=== PATIENT | female | born 1975 | race Asian ===

== ENCOUNTER 2021-09-05 08:50 | Outpatient (CLI) | payer BC, SELFPAY ==
[2021-09-05 14:12] LABS: Chloride* 105 mmol/L (96-114); Potassium* 4.5 mmol/L (3.6-5.1); Sodium* 139 mmol/L (135-149)
[2021-09-05 14:15] LABS: Blood Urea Nitrogen* 15 mg/dL (5-24); Carbon Dioxide* 27 mmol/L (20-32); Cholesterol* 232 mg/dL (90-199); Creatinine* 0.7 mg/dL (0.5-1.5); Estimated Glomerular Filt Rate 107 ml/min; Glucose* 85 mg/dL (60-115)
[2021-09-05 14:16] LABS: Calcium* 9.7 mg/dL (8.4-10.6); HDL Cholesterol* 58 mg/dL (>=50); LDL Cholesterol Calculated 136 mg/dL (<100); Triglycerides* 189 mg/dL (40-149)
[2021-09-05 14:45] LABS: TSH With Reflex to FT4* 0.735 uIU/mL (0.270-4.200)
== END 2021-09-05 08:51 | disposition home or self-care (01) ==
LOC: LKVREF 08:50
PROVIDERS: PCP Physician Assistant Medical; Visit Provider Physician Assistant Medical
DX: Z00.00 Encounter for general adult medical examination without abnormal findings (principal); I10 Essential (primary) hypertension; Z13.1 Encounter for screening for diabetes mellitus; Z13.6 Encounter for screening for cardiovascular disorders; Z13.0 Encounter for screening for diseases of the blood and blood-forming organs and certain disorders involving the immune mechanism
CPT/HCPCS: 80048; 80061; 84443

== ENCOUNTER 2021-10-06 12:41 | Outpatient (CLI) | payer BC, SELFPAY | END 2021-10-06 12:42 | disposition home or self-care (01) | PROVIDERS: PCP Physician Assistant Medical; Visit Provider Internal Medicine | DX: Z12.11 Encounter for screening for malignant neoplasm of colon (principal); K64.8 Other hemorrhoids | CPT/HCPCS: 45378; J2250; J3010 ==

== ENCOUNTER 2021-11-02 15:46 | Outpatient (CLI) | payer BC, SELFPAY ==
--- NOTE | 2021-11-02 15:40 | CRLHL7_ITS ---
For Patients: As a result of the Century Cures Act, medical imaging exams and procedure reports are released immediately into your electronic medical record. You may view this report before your referring provider. If you have questions, please contact your health care provider. BILATERAL SCREENING MAMMOGRAM WITH COMPUTER-AIDED DETECTION AND TOMOSYNTHESIS TECHNIQUE: CC and MLO views were obtained. These mammographic images have been obtained using full-field digital technique. These mammographic images were interpreted with the benefit of computer-aided detection. Breast Tomosynthesis was used in this interpretation. COMPARISON FILM: 01/13/19. FINDINGS: The breasts are heterogeneously dense, which may obscure small masses IMPRESSION: There is no radiographic evidence for malignancy. ASSESSMENT: BI-RADS Category 1: Negative RECOMMENDATION: Routine screening mammogram in 1 year. A lay language report of this examination will be provided to the patient. Alejandro Quintanilla M.D. Diagnostic Radiologist [email or web address] KEV/Dictated by: Alejandro Quintanilla MD @ 11/03/2021 8:23:00 AM (Electronically Signed)
== END 2021-11-02 15:47 | disposition home or self-care (01) ==
LOC: MAMMO 15:47
PROVIDERS: PCP Physician Assistant Medical; Visit Provider Physician Assistant Medical
DX: Z12.31 Encounter for screening mammogram for malignant neoplasm of breast (principal); R92.2 Inconclusive mammogram
CPT/HCPCS: 77063; 77067

== ENCOUNTER 2024-07-28 16:39 | Outpatient (CLI) | payer BC, SELFPAY ==
--- NOTE | 2024-07-28 17:00 | CRLHL7_ITS ---
For Patients: As a result of the Century Cures Act, medical imaging exams and procedure reports are released immediately into your electronic medical record. You may view this report before your referring provider. If you have questions, please contact your health care provider. COMPARISON: Baseline TECHNIQUE: Digital mammogram in CC and MLO projections including computer-aided detection (CAD) and tomosynthesis. BREAST COMPOSITION: The breasts are heterogeneously dense, which may obscure small masses. FINDINGS: No suspicious findings. ASSESSMENT: BI-RADS 1 Negative RECOMMENDATION: Annual screening mammogram. A lay language report of this examination will be provided to the patient. Dictated by: Alejandro Quintanilla MD @ 07/30/2024 11:53:02 (Electronically Signed)
== END 2024-07-28 16:40 | disposition home or self-care (01) ==
LOC: MAMMO 16:40
PROVIDERS: PCP Physician Assistant Medical; Visit Provider Physician Assistant Medical
DX: Z12.31 Encounter for screening mammogram for malignant neoplasm of breast (principal); R92.333 Mammographic heterogeneous density, bilateral breasts
CPT/HCPCS: 77063; 77067

== ENCOUNTER 2024-12-01 08:12 | Outpatient (CLI) | payer BC, SELFPAY | END 2024-12-01 08:13 | disposition home or self-care (01) | LOC: NFLDREF 12-03 11:30 | PROVIDERS: PCP Physician Assistant Medical; Referring Provider Physician Assistant Medical; Visit Provider Physician Assistant Medical | DX: Z13.9 Encounter for screening, unspecified (principal); Z00.00 Encounter for general adult medical examination without abnormal findings | CPT/HCPCS: 80053; 80061; 84443; 87086 ==

== ENCOUNTER 2024-12-04 15:58 | Outpatient (CLI) | payer BC, SELFPAY ==
[2024-12-04 23:02] LABS: Chlamydia DNA Amplified* NOT DETECTED (No Detected); GC DNA Amplified* NOT DETECTED (No Detected)
[2024-12-08 13:40] LABS: HPV Source Cervix
[2024-12-09 12:46] LABS: Pap Test Digital Imaging Done
== END 2024-12-04 15:59 | disposition home or self-care (01) ==
PROVIDERS: PCP Physician Assistant Medical; Visit Provider Physician Assistant Medical
DX: Z00.00 Encounter for general adult medical examination without abnormal findings (principal)
CPT/HCPCS: 87491; 87591; 87624; 87625; 88141; 88142; 88175

== ENCOUNTER 2024-12-11 15:42 | Outpatient (CLI) | payer BC, SELFPAY ==
--- NOTE | 2024-12-11 16:00 | CRLHL7_ITS ---
For Patients: As a result of the Century Cures Act, medical imaging exams and procedure reports are released immediately into your electronic medical record. You may view this report before your referring provider. If you have questions, please contact your health care provider. INDICATION: Left adnexal mass upon palpation COMPARISON: None. TECHNIQUE: 2D calle-scale and color Doppler images were acquired of the pelvis using a transabdominal and transvaginal approach. Transvaginal imaging performed to better visualize the endometrial stripe and ovaries. FINDINGS: Uterus measures 4.5 cm in length by 2.8 cm in AP diameter by 4.2 cm in transverse dimension. The endometrium is not well defined. Uterine echotexture appears heterogeneous. Due to excess bowel, the ovaries are not visualized. There are no suspicious fluid collections within the cul-de-sac. IMPRESSION: Nonvisualization of the ovaries due to excess bowel gas. Dictated by Alejandro Quintanilla MD @ 12/12/2024 7:34:02 PM (Electronically Signed)
== END 2024-12-11 15:43 | disposition home or self-care (01) ==
PROVIDERS: PCP Physician Assistant Medical; Visit Provider Physician Assistant Medical
DX: R19.09 Other intra-abdominal and pelvic swelling, mass and lump (principal); N94.89 Other specified conditions associated with female genital organs and menstrual cycle
CPT/HCPCS: 76830; 76856